=== PATIENT | female | born 1970 | race Caucasian/White ===

== ENCOUNTER 2016-03-14 11:00 | Inpatient (IN) | payer OTHER ==
[~2016-03-14] VITALS: Ht 157.5 cm; Wt 90.7 kg
[2016-03-14] MEDS ORDERED: ACETAMINOPHEN 500 MG TAB PO ONE (11:25)
[2016-03-14 12:11] LABS: DEFINITIVE VIEW TRANSMISSION; Hematocrit 28.5 % (36.0-46.0); Hemoglobin 8.4 g/dL (12.2-16.2); Mean Corpuscular Hemoglobin 17.2 pg (28.0-32.0); Mean Corpuscular Hgb Conc. 29.3 g/dL (32.0-36.0); Mean Corpuscular Volume 58.8 fL (80.0-100.0); Platelet Count (auto) 310 10^3/uL (140-450); White Blood Cell 6.5 10^3/uL (4.4-10.8)
[2016-03-14 12:15] LABS: Red Cell Distribution Width 20.1 % (11.6-16.0)
[2016-03-14 12:32] LABS: Albumin 3.5 g/dL (3.4-5.0); BUN/Creatinine Ratio 11.8; Bilirubin, Total 0.8 mg/dL (0.2-1.0); Calcium 8.8 mg/dL (8.5-10.1); Potassium 4.1 mmol/L (3.5-5.1); Total Protein 7.7 g/dL (6.4-8.2)
[2016-03-14 12:55] LABS: Basophils # (auto) 0 uL; Basophils % (auto) 0.7 % (0.0-2.0); Eosinophils # (auto) 0.1 uL; Eosinophils % (auto) 1.4 % (0.0-7.0); Lymphocytes # (auto) 0.4 uL; Lymphocytes % (auto) 6.1 % (10.0-50.0); Monocytes # (auto) 0.7 uL; Monocytes % (auto) 10.2 % (0.0-12.0); Neutrophils # (auto) 5.6 uL; Neutrophils % (auto) 81.6 % (37.0-80.0)
[2016-03-14 12:56] LABS: Anisocytosis Slight; Hypochromia Slight; Microcytosis Slight; Ovalocytes FEW; Platelet Estimate Adequate; Schistocytes FEW; Stomatocytes Few
[2016-03-14] MEDS ORDERED: ACETAMINOPHEN 650 mg PER 20 mL UD ONE (14:23)
[2016-03-14] MEDS ORDERED: ONDANSETRON HCL 4 MG/2 ML VIAL IV ONE (14:30)
[2016-03-14] MEDS ORDERED: cefTRIAXone 1GM/50ML D5W 50 ML IV ONE ×2 (14:30→17:15)
[2016-03-14] MEDS ORDERED: SODIUM CHLORIDE 0.9% 1,000 ML IV ONE (14:30)
[2016-03-14] MEDS ORDERED: HYDROmorphone HCL 2 MG/ML VL IV ONE (14:30)
[2016-03-14] MEDS ORDERED: ACETAMINOPHEN 650 mg PER 20 mL UD PO ONE (14:45)
[2016-03-14 14:57] LABS: Amylase 22 U/L (25-115)
[2016-03-14 15:16] LABS: Urine Bilirubin Negative (Negative); Urine Color Yellow (Yellow); Urine Glucose Normal (Normal); Urine Ketone Negative (Negative); Urine Mucus FEW (None Seen); Urine Nitrite Negative (Negative); Urine RBC 6 /hpf (0 - 4); Urine Squamous Epithelial Cell FEW /hpf (<5); Urine Urobilinogen Normal (Negative); Urine pH 6.5 (5.0-8.0)
[2016-03-14 15:18] LABS: Urine Blood 1+ /uL (Negative)
[2016-03-14] MEDS ORDERED: AZITHROMYCIN 500MG/D5W 250ML 250 ML IV ONE (17:15)
[2016-03-14] MEDS ORDERED: PANTOPRAZOLE SODIUM 40 MG/10 ML VIAL IV ONE (17:15)
[2016-03-14] MEDS ORDERED: MORPHINE SULF INJ 2 MG/ML SYRINGE 1ML IV PRN (17:15)
[2016-03-14] MEDS ORDERED: ONDANSETRON HCL 4 MG/2 ML VIAL IV PRN (17:15)
[2016-03-14] MEDS ORDERED: ACETAMINOPHEN 500 MG TAB PO PRN (17:30)
[2016-03-14] MEDS ORDERED: LEVOTHYROXINE SODIUM 25 MCG TAB PO ONE (17:45)
[2016-03-14] MEDS: SODIUM CHLORIDE 0.9% 1,000 ML IV SCH (18:42)
[2016-03-14] MEDS: IPRATROPIUM BROM 0.5 MG/2.5ML INH SOL NEB SCH (18:51)
[2016-03-14] MEDS: ALBUTEROL SULF 2.5 MG/0.5ML(0.5%) NEB SOLN NEB SCH (18:51)
[2016-03-14 21:23] VITALS: BP 125/70
[2016-03-14 21:55] VITALS: BP 123/68
[2016-03-15] VITALS (13 sets, daily range): BP systolic 107–130; BP diastolic 54–75
[2016-03-15 06:19] LABS: Partial Thromboplastin Time 29.9 sec (22.64-33.71); Prothrombin Time 12.3 sec (9.37-12.3)
[2016-03-15 06:23] LABS: INR 1.19 (0.9-1.15)
[2016-03-15 06:26] LABS: BUN/Creatinine Ratio 14.3; Calcium 8.4 mg/dL (8.5-10.1); Potassium 3.6 mmol/L (3.5-5.1)
[2016-03-15 06:29] LABS: Basophils # (auto) 0 uL; Basophils % (auto) 0.9 % (0.0-2.0); DEFINITIVE VIEW TRANSMISSION; Eosinophils # (auto) 0 uL; Eosinophils % (auto) 0.2 % (0.0-7.0); Hematocrit 25.7 % (36.0-46.0); Hemoglobin 7.4 g/dL (12.2-16.2); Lymphocytes # (auto) 0.6 uL; Mean Corpuscular Hgb Conc. 28.8 g/dL (32.0-36.0); Mean Corpuscular Volume 58.9 fL (80.0-100.0); Mean Platelet Volume 8.2 fL (7.4-10.4); Neutrophils # (auto) 3.7 uL; Neutrophils % (auto) 69.4 % (37.0-80.0); Platelet Count (auto) 204 10^3/uL (140-450); White Blood Cell 5.4 10^3/uL (4.4-10.8)
[2016-03-15 06:32] LABS: Monocytes % (auto) 18.5 % (0.0-12.0); Red Cell Distribution Width 20.2 % (11.6-16.0)
[2016-03-15] MEDS: IPRATROPIUM BROM 0.5 MG/2.5ML INH SOL NEB SCH ×3 (06:43→20:09)
[2016-03-15] MEDS: ALBUTEROL SULF 2.5 MG/0.5ML(0.5%) NEB SOLN NEB SCH ×3 (06:43→20:09)
[2016-03-15] MEDS: HYDROcodone-ACET 5/325MG TAB PO PRN ×2 (06:47→23:30)
[2016-03-15] MEDS: SODIUM CHLORIDE 0.9% 1,000 ML IV SCH ×2 (06:50→20:30)
[2016-03-15] MEDS ORDERED: LEVOTHYROXINE SODIUM 25 MCG TAB PO SCH ×2 (07:00→10:00)
[2016-03-15 07:02] LABS: Anisocytosis Slight; Hypochromia Slight; Microcytosis Slight; Platelet Estimate Adequate
[2016-03-15] MEDS ORDERED: cefTRIAXone 1GM/50ML D5W 50 ML IV SCH (09:00)
[2016-03-15] MEDS ORDERED: PANTOPRAZOLE SODIUM 40 MG/10 ML VIAL IV SCH (10:00)
[2016-03-15] MEDS ORDERED: AZITHROMYCIN 500MG/D5W 250ML 250 ML IV SCH (10:00)
[2016-03-15] MEDS ORDERED: OSELTAMIVIR 75 MG CAP PO SCH (10:00)
[2016-03-15] MEDS ORDERED: ESOM0.1C (10:02)
[2016-03-15] MEDS ORDERED: LEVO50TA7 (10:02)
[2016-03-15] MEDS ORDERED: BECL0.07 (10:02)
[2016-03-15] MEDS ORDERED: CHOL20007 PO (10:02)
[2016-03-15] MEDS: guaiFENesin-COD 10 ML UD PO PRN ×2 (18:05→22:32)
[2016-03-16] MEDS: ALBUTEROL SULF 2.5 MG/0.5ML(0.5%) NEB SOLN NEB SCH ×2 (00:01→06:09)
[2016-03-16] MEDS: IPRATROPIUM BROM 0.5 MG/2.5ML INH SOL NEB SCH ×2 (00:01→06:09)
[2016-03-16 06:30] LABS: Hemoglobin 9.5 g/dL (12.2-16.2)
== END 2016-03-16 08:50 | disposition left against medical advice (07) | DRG 140 ==
LOC: ER 11:05 → OVERFLOW 11:06 → CENTRAL 19:59
PROVIDERS: ADMIT Internal Medicine; ATTEND Internal Medicine
PROC: 30233N1 Transfusion of Nonautologous Red Blood Cells into Peripheral Vein, Percutaneous Approach (ICD-10-PCS; principal; 2016-03-15)
DX: J44.1 Chronic obstructive pulmonary disease with (acute) exacerbation (principal); N39.0 Urinary tract infection, site not specified; E03.9 Hypothyroidism, unspecified; D50.9 Iron deficiency anemia, unspecified; F17.210 Nicotine dependence, cigarettes, uncomplicated; E66.9 Obesity, unspecified; K44.9 Diaphragmatic hernia without obstruction or gangrene; J44.0 Chronic obstructive pulmonary disease with (acute) lower respiratory infection; J10.1 Influenza due to other identified influenza virus with other respiratory manifestations; J20.9 Acute bronchitis, unspecified; K21.9 Gastro-esophageal reflux disease without esophagitis; Z86.73 Personal history of transient ischemic attack (TIA), and cerebral infarction without residual deficits; Z90.49 Acquired absence of other specified parts of digestive tract; Z68.36 Body mass index [BMI] 36.0-36.9, adult
CPT/HCPCS: 36415; 71010; 71020; 74176; 76856; 80048; 80053; 81001; 82150; 82728; 83540; 83550; 83690; 83735; 84484; 84702; 85007; 85014; 85018; 85025; 85027; 85610; 85730; 86850; 86900; 86901; 86920; 87040; 87400; 93005; 94640; 96365; 96366; 96367; 96375; 99291; C9113; J0696; J2405